=== PATIENT | male | born 1970 | race Caucasian/White ===

== ENCOUNTER 2017-12-25 07:09 | Day surgery (SDC) | payer OTHER ==
[2017-12-25] MEDS ORDERED: MIDAZOLAM 1 MG/ML 2 ML INJ (08:53)
[2017-12-25] MEDS ORDERED: FENTAnyl 50 MCG/ML VIAL (08:53)
[2017-12-25] MEDS ORDERED: PROPOFOL 20 ML (08:53)
== END 2017-12-25 12:21 | disposition home or self-care (01) ==
LOC: GIL 07:09
DX: Z12.11 Encounter for screening for malignant neoplasm of colon (principal); K29.70 Gastritis, unspecified, without bleeding; K64.8 Other hemorrhoids
CPT/HCPCS: 43239; 88305